=== PATIENT | male | born 1960 | race Caucasian/White ===

== ENCOUNTER 2022-07-20 23:30 | Emergency (ER) | payer BC ==
[2022-07-20] MEDS ORDERED: Sodium Chloride 0.9% 10 ML Syringe FLUSH PRN (23:54)
[2022-07-20] MEDS ORDERED: Lactated Ringers 1,000 ML IV ONE (23:56)
[2022-07-20] MEDS ORDERED: HYDROmorphone 1 MG/ML Syringe IVPUSH ONE (23:56)
[2022-07-20] MEDS ORDERED: Ondansetron 4 MG/2 ML SDV IVPUSH ONE (23:56)
[2022-07-21 00:01] LABS: BASOPHILS PERCENT AUTO 0.2 % (0.2-1.2); EOSINOPHILS ABSOLUTE AUTO 0.1 x10^3/uL (0.0-0.5); EOSINOPHILS PERCENT AUTO 0.7 % (0.0-4.0); IMMATURE GRAN ABSOLUTE AUTO 0.04 x10^3/uL (0.00-0.07); LYMPHOCYTES ABSOLUTE AUTO 3.1 x10^3/uL (1.0-4.8); LYMPHOCYTES PERCENT AUTO 16.3 % (25.0-50.0); MEAN CORPUSCULAR HEMOGLOBIN 30.4 pg (26.0-32.0); MEAN CORPUSCULAR HGB CONC 34.1 g/dL (32.0-36.0); MEAN CORPUSCULAR VOLUME 88.9 fL (78.0-93.0); MONOCYTES PERCENT AUTO 5.1 % (2.0-11.0); NEUTROPHILS ABSOLUTE AUTO 14.7 x10^3/uL (1.8-7.7); NEUTROPHILS PERCENT AUTO 77.5 % (50.0-80.0); PLATELET COUNT,PLT 280 x10^3/uL (130-400); RED BLOOD CELL COUNT 4.61 x10^6/uL (4.5-6.0)
[2022-07-21 00:23] LABS: A/G RATIO 1.09; ALANINE AMINOTRANSFERASE,ALT 32 U/L (16-63); ALBUMIN 3.8 g/dL (3.4-5.0); ALKALINE PHOSPHATASE 77 U/L (46-116); ASPARTATE AMNIOTRANSFERASE,AST 15 U/L (15-37); BILIRUBIN TOTAL 0.4 mg/dL (0.2-1.0); BLOOD UREA NITROGEN,BUN 20 mg/dL (7-18); CALCIUM 9.2 mg/dL (8.5-10.1); CARBON DIOXIDE,CO2 22 mmol/L (21-32); CHLORIDE,CL 99 mmol/L (98-107); CREATININE 1.1 mg/dL (0.70-1.30); GLUCOSE RANDOM 215 mg/dL (70-99); MAGNESIUM 1.8 mg/dL (1.8-2.4); POTASSIUM,K 3.7 mmol/L (3.5-5.1); PROTEIN TOTAL,TP 7.3 g/dL (6.4-8.2); PROTHROMBIN TIME 10.5 SEC (9.5-12.2); PTT,PARTIAL THROMBOPLSTIN TIME 26.7 SEC (23.6-33.6); SODIUM,NA 139 mmol/L (136-145)
[2022-07-21 00:24] LABS: ANION GAP 21.7 mmol/L (5-15); C-REACTIVE PROTEIN < 0.2 mg/dL (<=0.9); ESTIMATED GFR 77 mL/min (>=60)
[2022-07-21] MEDS ORDERED: Iopamidol 612 MG/ML 100 ML Bottle IVPUSH ONE (00:25)
[2022-07-21 01:10] VITALS: BP 124/60; PULSE 68
[2022-07-21] MEDS ORDERED: HYDROmorphone 0.5 MG/0.5 ML Syringe IVPUSH ONE (01:18)
== END 2022-07-21 01:35 | disposition short-term general hospital (02) ==
LOC: VM.ED 23:30
DX: S30.1XXA Contusion of abdominal wall, initial encounter (principal); Z79.01 Long term (current) use of anticoagulants; Z79.82 Long term (current) use of aspirin; W01.0XXA Fall on same level from slipping, tripping and stumbling without subsequent striking against object, initial encounter
CPT/HCPCS: 74177; 80053; 83735; 85025; 85610; 85730; 86140; 96374; 96375; 96376; 99285; J1170; J2405; J7120; Q9967